=== PATIENT | female | born 1950 | race Caucasian/White ===

== ENCOUNTER 2017-07-27 16:26 | Emergency (ER) | payer OTHER ==
[~2017-07-27] VITALS: Ht 167.6 cm; Wt 61.7 kg
[~2017-07-27 16:26] MED LIST: ATENOLOL25 MG PO; CARAFATE SU1 G/10 ML PO; DARVOCET N PO; LEVSIN/SL0.125 MG PO; LIRICA; PREDNISON; PROTONIX40 MG PO; VERAPAMIL HCL80 MG; ZANTAC150 MG PO
[2017-07-27] MEDS ORDERED: COZAAR50 MG PO (16:34)
[2017-07-27] MEDS ORDERED: NEURONTIN300 MG PO ×2 (16:35→16:36)
[2017-07-27] MEDS ORDERED: AMBIEN5 MG PO (16:36)
[2017-07-27] MEDS ORDERED: MEDROLPACK PO (20:32)
[2017-08-01] MEDS ORDERED: ORPHENADRINE C100 MG PO (02:10)
[2017-08-01] MEDS ORDERED: ULTRACET PO (02:10)
[2017-08-01] MEDS ORDERED: ZANTAC300 MG PO (02:10)
== END 2017-07-27 20:40 | disposition home or self-care (01) ==
LOC: ER 16:26
DX: M54.2 Cervicalgia (principal)

== ENCOUNTER → 2017-07-31 | Emergency (ER) | payer OTHER ==
[~2017-07-31] VITALS: Ht 167.6 cm; Wt 61.7 kg
[~2017-07-31] MED LIST changes: +AMBIEN5 MG PO; +COZAAR50 MG PO; +MEDROLPACK PO; +NEURONTIN300 MG PO; +ORPHENADRINE C100 MG PO; +ULTRACET PO; +ZANTAC300 MG PO
== END | disposition home or self-care (01) ==
LOC: ER 19:35
DX: M54.2 Cervicalgia (principal); M62.838 Other muscle spasm; R07.89 Other chest pain

== ENCOUNTER → 2017-08-09 | Emergency (ER) | payer OTHER ==
[~2017-08-09] VITALS: Ht 167.6 cm; Wt 70.3 kg
== END | disposition home or self-care (01) ==
LOC: ER 15:00
DX: J45.901 Unspecified asthma with (acute) exacerbation (principal); J45.998 Other asthma

== ENCOUNTER 2018-01-05 18:18 | Emergency (ER) | payer OTHER ==
[~2018-01-05] VITALS: Ht 167.6 cm; Wt 60.8 kg
== END 2018-01-05 23:30 | disposition home or self-care (01) ==
LOC: ER 18:18
DX: J45.998 Other asthma (principal); J11.1 Influenza due to unidentified influenza virus with other respiratory manifestations